=== PATIENT | male | born 1940 | race Caucasian/White ===

== ENCOUNTER 2024-02-06 07:42 | Emergency (ER) | payer MEDICARE, BC ==
[2024-02-06 08:22] LABS: BASOPHILS PERCENT AUTO 0.2 % (0.0-1.0); EOSINOPHILS PERCENT AUTO 1.5 % (1.0-3.0); HEMATOCRIT 47.2 % (40.0-54.0); HEMOGLOBIN 15.6 g/dL (14.0-18.0); LYMPHOCYTES PERCENT AUTO 18.5 % (20.5-50.1); MEAN CORPUSCULAR HGB CONC 33.1 g/dL (33.0-35.0); MEAN CORPUSCULAR VOLUME 96.9 fL (80-100); MONOCYTES PERCENT AUTO 10.8 % (2-8); PLATELET COUNT,PLT 174 10^3/uL (150-450); RED BLOOD CELL COUNT 4.87 10^6/uL (4.6-6.2); WHITE BLOOD CELL COUNT,WBC 8.5 10^3/uL (5.0-10.0)
[2024-02-06] MEDS: Sodium Chloride 0.9% 10 ML Syringe FLUSH PRN (08:37)
[2024-02-06] MEDS: fentaNYL 100 MCG/2 ML SDV IVPUSH ONE (08:57)
[2024-02-06 09:24] LABS: ALBUMIN 3.4 g/dL (3.4-5.0); ANION GAP 9.6 mEq/L (7-13); BILIRUBIN TOTAL 1.1 mg/dL (0.2-1.0); BUN/CREATININE RATIO 12.2 (No establ ref range); CALCIUM 9.2 mg/dL (8.5-10.1); CREATININE 1.56 mg/dL (0.70-1.30); EST CRCL DRUG DOSING (CG) 35.75 mL/min; POTASSIUM,K 4.6 mmol/L (3.5-5.1); PROTEIN TOTAL,TP 6.7 g/dL (6.4-8.2)
== END 2024-02-06 10:41 | disposition home or self-care (01) ==
LOC: DL.ED 07:42
DX: M54.6 Pain in thoracic spine (principal); R79.89 Other specified abnormal findings of blood chemistry; I10 Essential (primary) hypertension; E78.00 Pure hypercholesterolemia, unspecified; E66.9 Obesity, unspecified; Z87.891 Personal history of nicotine dependence; Z79.899 Other long term (current) drug therapy; Z79.82 Long term (current) use of aspirin; Z68.34 Body mass index [BMI] 34.0-34.9, adult
CPT/HCPCS: 36415; 74176; 80053; 85025; 96374; 99284; 99284-25; J3010; J3490

== ENCOUNTER 2024-02-19 15:36 | Emergency (ER) | payer MEDICARE, BC ==
[2024-02-19] MEDS ORDERED: Sodium Chloride 0.9% 10 ML Syringe FLUSH PRN (16:02)
[2024-02-19 16:25] LABS: BASOPHILS PERCENT AUTO 0.1 % (0.0-1.0); EOSINOPHILS PERCENT AUTO 0.2 % (1.0-3.0); HEMATOCRIT 43.6 % (40.0-54.0); HEMOGLOBIN 14.5 g/dL (14.0-18.0); MEAN CORPUSCULAR HEMOGLOBIN 31.4 pg (27.0-34.0); MEAN CORPUSCULAR HGB CONC 33.3 g/dL (33.0-35.0); MEAN CORPUSCULAR VOLUME 94.4 fL (80-100); MONOCYTES PERCENT AUTO 10.9 % (2-8); NEUTROPHILS PERCENT AUTO 80.8 % (42.2-75.2); PLATELET COUNT,PLT 158 10^3/uL (150-450); RED BLOOD CELL COUNT 4.62 10^6/uL (4.6-6.2)
[2024-02-19 16:44] LABS: A/G RATIO 0.9; ALBUMIN 3.4 g/dL (3.4-5.0); ANION GAP 13.3 mEq/L (7-13); BILIRUBIN TOTAL 1.1 mg/dL (0.2-1.0); BUN/CREATININE RATIO 11.9 (No establ ref range); C-REACTIVE PROTEIN 5.51 ng/dL (<=0.50); CALCIUM 9.2 mg/dL (8.5-10.1); CREATININE 2.53 mg/dL (0.70-1.30); EST CRCL DRUG DOSING (CG) 22.04 mL/min; MAGNESIUM 2.2 mg/dL (1.8-2.4); POTASSIUM,K 5.3 mmol/L (3.5-5.1)
[2024-02-19] MEDS: Ondansetron 4 MG/2 ML SDV IVPUSH ONE (16:45)
[2024-02-19 16:52] LABS: APPEARANCE,URINE SLIGHTLY CLOUDY (CLEAR); BILIRUBIN,URINE SMALL (NEGATIVE); COLOR,URINE YELLOW (YELLOW); GLUCOSE,URINE NEGATIVE (NEGATIVE); KETONES,URINE 40 (NEGATIVE); LEUKOCYTE ESTERASE,URINE NEGATIVE (NEGATIVE); NITRITE,URINE NEGATIVE (NEGATIVE); OCCULT BLOOD,URINE LARGE (NEGATIVE); PH,URINE 5.5 (5.0-9.0); PROTEIN,URINE NEGATIVE (NEGATIVE)
[2024-02-19] MEDS: Sodium Chloride 0.9% 1,000 ML IV ONE ×2 (17:06→18:08)
[2024-02-19 17:13] LABS: BACTERIA,URINE RARE /HPF (0-FEW/HPF); EPITHELIAL CELLS,URINE FEW /HPF (NOT SEEN); MUCUS,URINE FEW /LPF (NOT SEEN); RBC,URINE 30-40 /HPF (0-5); WBC,URINE 0-5 /HPF (0-5/HPF)
== END 2024-02-19 19:12 ==
LOC: DL.ED 15:36
DX: N13.30 Unspecified hydronephrosis (principal); N17.9 Acute kidney failure, unspecified; E78.00 Pure hypercholesterolemia, unspecified; E66.9 Obesity, unspecified; Z79.82 Long term (current) use of aspirin; Z79.899 Other long term (current) drug therapy; Z68.33 Body mass index [BMI] 33.0-33.9, adult
CPT/HCPCS: 36415; 74176; 80053; 81001; 83735; 85025; 86140; 87804; 96361; 96374; 99284; J2405; J7030; U0002

== ENCOUNTER 2024-04-15 08:35 | Inpatient (IN) | payer MEDICARE, BC ==
[2024-04-15] MEDS ORDERED: Sodium Chloride 0.9% 10 ML Syringe FLUSH PRN (09:10)
[2024-04-15 09:34] LABS: BASOPHILS PERCENT AUTO 0.2 % (0.0-1.0); EOSINOPHILS PERCENT AUTO 4.5 % (1.0-3.0); HEMATOCRIT 38.3 % (40.0-54.0); HEMOGLOBIN 12.6 g/dL (14.0-18.0); LYMPHOCYTES PERCENT AUTO 10.8 % (20.5-50.1); MEAN CORPUSCULAR HEMOGLOBIN 30.1 pg (27.0-34.0); MEAN CORPUSCULAR HGB CONC 32.9 g/dL (33.0-35.0); MEAN CORPUSCULAR VOLUME 91.4 fL (80-100); MONOCYTES PERCENT AUTO 11.5 % (2-8); PLATELET COUNT,PLT 263 10^3/uL (150-450); RED BLOOD CELL COUNT 4.19 10^6/uL (4.6-6.2); WHITE BLOOD CELL COUNT,WBC 11.3 10^3/uL (5.0-10.0)
[2024-04-15 09:42] LABS: BILIRUBIN,URINE NEGATIVE (NEGATIVE); COLOR,URINE YELLOW (YELLOW); GLUCOSE,URINE NEGATIVE (NEGATIVE); KETONES,URINE NEGATIVE (NEGATIVE); LEUKOCYTE ESTERASE,URINE TRACE (NEGATIVE); NITRITE,URINE NEGATIVE (NEGATIVE); OCCULT BLOOD,URINE TRACE-INTACT (NEGATIVE); PROTEIN,URINE TRACE (NEGATIVE); UROBILINOGEN,URINE 0.2 mg/dL (0.2-1.0)
[2024-04-15 09:43] LABS: APPEARANCE,URINE SLIGHTLY CLOUDY (CLEAR)
[2024-04-15 09:46] LABS: ALBUMIN 2.8 g/dL (3.4-5.0); ANION GAP 11.3 mEq/L (7-13); BILIRUBIN TOTAL 0.7 mg/dL (0.2-1.0); BUN/CREATININE RATIO 14.5 (No establ ref range); C-REACTIVE PROTEIN 7.62 ng/dL (<=0.50); CALCIUM 12.9 mg/dL (8.5-10.1); EST CRCL DRUG DOSING (CG) 27.88 mL/min; MAGNESIUM 2.1 mg/dL (1.8-2.4); POTASSIUM,K 5.3 mmol/L (3.5-5.1); PROTEIN TOTAL,TP 7.6 g/dL (6.4-8.2)
[2024-04-15 09:50] LABS: LACTIC ACID 1.8 mmol/L (0.4-2.0)
[2024-04-15 09:56] LABS: BACTERIA,URINE FEW /HPF (0-FEW/HPF); EPITHELIAL CELLS,URINE OCCASIONAL /HPF (NOT SEEN); MUCUS,URINE RARE /LPF (NOT SEEN); RBC,URINE 0-5 /HPF (0-5)
[2024-04-15 10:01] LABS: A/G RATIO 0.58
[2024-04-15] MEDS: Sodium Chloride 0.9% 1,000 ML IV ONE (10:10)
[2024-04-15] MEDS: Calcitonin (Salmon) Nasal Spray 3.7 ML Bottle NAS ONE ×2 (12:36→12:48)
[2024-04-15] MEDS: Dexamethasone 4 MG/ML SDV IVPUSH ONE (12:48)
[2024-04-15] MEDS: Sodium Chloride 0.9% 1,000 ML IV SCH (12:56)
[2024-04-15] MEDS ORDERED: Oxybutynin 5 MG Tab PO PRN (13:11)
[2024-04-15] MEDS ORDERED: Ondansetron 4 MG/2 ML SDV IVPUSH PRN (13:19)
[2024-04-15] MEDS ORDERED: Sennosides/Docusate Sodium 50-8.6 MG Tab PO PRN (13:19)
[2024-04-15] MEDS ORDERED: Polyethylene Glycol 3350 Powder 17 GM Packet PO PRN (13:19)
[2024-04-15] MEDS ORDERED: Acetaminophen 325 MG Tab PO PRN (13:19)
[2024-04-15] MEDS ORDERED: Naloxone 2 MG/2 ML Syringe IVPUSH PRN (13:19)
[2024-04-15] MEDS ORDERED: Albuterol/Ipratropium 3.0-0.5 MG/3 ML Neb Soln NEB PRN (13:19)
[2024-04-15] MEDS ORDERED: Magnesium Hydroxide 400 MG/5 ML Susp 30 ML Cup PO PRN (13:19)
[2024-04-15] MEDS: Furosemide 20 MG/2 ML VIAL IVPUSH ONE (14:04)
[2024-04-15 20:29] LABS: ALBUMIN 2.3 g/dL (3.4-5.0); ANION GAP 9.2 mEq/L (7-13); BILIRUBIN TOTAL 0.6 mg/dL (0.2-1.0); BUN/CREATININE RATIO 14.2 (No establ ref range); CREATININE 2.11 mg/dL (0.70-1.30); EST CRCL DRUG DOSING (CG) 26.43 mL/min; MAGNESIUM 2.1 mg/dL (1.8-2.4); POTASSIUM,K 5.2 mmol/L (3.5-5.1); PROTEIN TOTAL,TP 6.6 g/dL (6.4-8.2)
[2024-04-15 20:32] LABS: A/G RATIO 0.53
[2024-04-15] MEDS: Melatonin 3 MG Tab PO PRN (20:40)
[2024-04-15] MEDS: Mirtazapine 15 MG Tab PO SCH (20:40)
[2024-04-15] MEDS: Acetaminophen/oxyCODONE 325-5 MG Tab PO PRN (20:40)
[2024-04-15] MEDS: Calcitonin (Salmon) Nasal Spray 3.7 ML Bottle NAS SCH (20:41)
[2024-04-16] MEDS ORDERED: Calcitonin (Salmon) Nasal Spray 3.7 ML Bottle NAS SCH (01:00)
[2024-04-16] MEDS: HYDROmorphone 0.5 MG/0.5 ML Syringe IVPUSH PRN (02:50)
[2024-04-16 06:07] LABS: BASOPHILS PERCENT AUTO 0.1 % (0.0-1.0); EOSINOPHILS PERCENT AUTO 0.2 % (1.0-3.0); HEMOGLOBIN 10.7 g/dL (14.0-18.0); LYMPHOCYTES PERCENT AUTO 11.4 % (20.5-50.1); MEAN CORPUSCULAR HGB CONC 32.4 g/dL (33.0-35.0); MEAN CORPUSCULAR VOLUME 92.4 fL (80-100); MONOCYTES PERCENT AUTO 10.2 % (2-8); NEUTROPHILS PERCENT AUTO 78.1 % (42.2-75.2); PLATELET COUNT,PLT 236 10^3/uL (150-450); RED BLOOD CELL COUNT 3.57 10^6/uL (4.6-6.2); WHITE BLOOD CELL COUNT,WBC 10.6 10^3/uL (5.0-10.0)
[2024-04-16 06:31] LABS: ALBUMIN 2.3 g/dL (3.4-5.0); ANION GAP 9.8 mEq/L (7-13); BILIRUBIN TOTAL 0.6 mg/dL (0.2-1.0); BUN/CREATININE RATIO 14.6 (No establ ref range); CALCIUM 11.6 mg/dL (8.5-10.1); CREATININE 1.99 mg/dL (0.70-1.30); EST CRCL DRUG DOSING (CG) 28.02 mL/min; MAGNESIUM 2.1 mg/dL (1.8-2.4); POTASSIUM,K 4.8 mmol/L (3.5-5.1); PROTEIN TOTAL,TP 6.4 g/dL (6.4-8.2)
[2024-04-16 06:46] LABS: A/G RATIO 0.56
[2024-04-16] MEDS: Dexamethasone 4 MG Tab PO SCH (09:36)
[2024-04-16] MEDS: Diclofenac Sodium 1% Gel 100 GM Tube TOP PRN (17:43)
[2024-04-16] MEDS: Ziprasidone Mesylate 20 MG Vial IM ONE (20:32)
[2024-04-16] MEDS: Lidocaine 5% 700 MG Patch TOP SCH (20:32)
[2024-04-16] MEDS ORDERED: Flumazenil 0.1 MG/ML 5 ML MDV IVPUSH PRN (21:23)
[2024-04-16] MEDS: LORazepam 2 MG/ML SDV IVPUSH STA (21:36)
[2024-04-17] MEDS: LORazepam 2 MG/ML SDV IVPUSH ONE (02:46)
[2024-04-17 11:26] LABS: BASOPHILS PERCENT AUTO 0.1 % (0.0-1.0); EOSINOPHILS PERCENT AUTO 1.8 % (1.0-3.0); HEMATOCRIT 37.5 % (40.0-54.0); HEMOGLOBIN 12.2 g/dL (14.0-18.0); LYMPHOCYTES PERCENT AUTO 8.7 % (20.5-50.1); MEAN CORPUSCULAR HGB CONC 32.5 g/dL (33.0-35.0); MEAN CORPUSCULAR VOLUME 92.1 fL (80-100); MONOCYTES PERCENT AUTO 11.2 % (2-8); NEUTROPHILS PERCENT AUTO 78.2 % (42.2-75.2); PLATELET COUNT,PLT 225 10^3/uL (150-450); RED BLOOD CELL COUNT 4.07 10^6/uL (4.6-6.2); WHITE BLOOD CELL COUNT,WBC 13.5 10^3/uL (5.0-10.0)
[2024-04-17 11:54] LABS: ALBUMIN 2.7 g/dL (3.4-5.0); ANION GAP 10.8 mEq/L (7-13); BILIRUBIN TOTAL 0.8 mg/dL (0.2-1.0); BUN/CREATININE RATIO 14.1 (No establ ref range); CALCIUM 12.9 mg/dL (8.5-10.1); CREATININE 2.05 mg/dL (0.70-1.30); EST CRCL DRUG DOSING (CG) 27.2 mL/min; MAGNESIUM 2.2 mg/dL (1.8-2.4); POTASSIUM,K 4.8 mmol/L (3.5-5.1); PROTEIN TOTAL,TP 6.8 g/dL (6.4-8.2)
[2024-04-17 12:03] LABS: A/G RATIO 0.66
[2024-04-17] MEDS: Denosumab 60 MG/1 ML Syringe SUBCUT ONE (12:48)
[2024-04-17 15:46] LABS: VITAMIN D 1,25 29.7 pg/mL (19.9-79.3)
[2024-04-17] MEDS ORDERED: Sodium Chloride 0.9% 500 ML IV SCH (16:30)
[2024-04-17] MEDS: Furosemide 20 MG/2 ML VIAL IVPUSH ONE (19:19)
[2024-04-17] MEDS: Furosemide 20 MG/2 ML VIAL ONE (19:20)
[2024-04-17] MEDS: Sodium Chloride 0.9% 1,000 ML IV SCH (19:24)
[2024-04-17] MEDS: Rosuvastatin 10 MG Tab PO SCH (20:08)
[2024-04-17] MEDS: Carvedilol 3.125 MG Tab PO SCH (20:08)
[2024-04-17 23:42] LABS: INTACT PTH 7 pg/mL (15-65)
[2024-04-18] MEDS: LORazepam 2 MG/ML SDV IVPUSH PRN (00:44)
[2024-04-18] MEDS: Aspirin 81 MG Tab.EC PO SCH (08:20)
[2024-04-18 11:27] LABS: ANION GAP 10.8 mEq/L (7-13); CALCIUM 11.7 mg/dL (8.5-10.1); CREATININE 1.92 mg/dL (0.70-1.30); EST CRCL DRUG DOSING (CG) 29.04 mL/min; POTASSIUM,K 4.8 mmol/L (3.5-5.1)
[2024-04-18] MEDS: Scopalamine 1mg/3day Transdermal Patch TOP ONE (12:38)
[2024-04-19] MEDS: Atropine 1% Ophth Soln 5 ML Bottle SL PRN (08:34)
[2024-04-19] MEDS: HYDROmorphone 1 MG/ML Syringe IVPUSH PRN (13:10)
[2024-04-19] MEDS: LORazepam 2 MG/ML SDV IVPUSH PRN (13:10)
[2024-04-19 19:41] LABS: IONIZED CA@PH7.4 1.75 mmol/L (1.09-1.30); IONIZED CALCIUM 1.66 mmol/L (1.09-1.30)
[2024-04-21] MEDS ORDERED: CHECK SCOPOLAMINE TRDERM SCH (11:15)
== END 2024-04-19 18:50 | disposition expired | DRG 640 ==
LOC: DL.ED 08:35 → DL.MS 10:44
PROVIDERS: ADMIT Internal Medicine; ATTEND Internal Medicine
DX: E83.52 Hypercalcemia (principal); G93.41 Metabolic encephalopathy; N17.9 Acute kidney failure, unspecified; C64.1 Malignant neoplasm of right kidney, except renal pelvis; C66.1 Malignant neoplasm of right ureter; E87.1 Hypo-osmolality and hyponatremia; Z66 Do not resuscitate; Z79.2 Long term (current) use of antibiotics; Z51.5 Encounter for palliative care; E87.5 Hyperkalemia; E87.8 Other disorders of electrolyte and fluid balance, not elsewhere classified; H54.7 Unspecified visual loss; M19.90 Unspecified osteoarthritis, unspecified site; E78.00 Pure hypercholesterolemia, unspecified; E66.9 Obesity, unspecified; E88.09 Other disorders of plasma-protein metabolism, not elsewhere classified; R63.4 Abnormal weight loss; F32.A Depression, unspecified; R73.9 Hyperglycemia, unspecified; E86.0 Dehydration; G89.29 Other chronic pain; D72.829 Elevated white blood cell count, unspecified; Z68.30 Body mass index [BMI] 30.0-30.9, adult; Z86.16 Personal history of COVID-19; Z79.82 Long term (current) use of aspirin; Z79.899 Other long term (current) drug therapy; Z87.891 Personal history of nicotine dependence; Z96.659 Presence of unspecified artificial knee joint; Z98.890 Other specified postprocedural states; Z86.0100 Personal history of colon polyps, unspecified
CPT/HCPCS: 36415; 80053; 81001; 82306; 82652; 83605; 83735; 83970; 85025; 86140; 87086; 87428; 96360; 99284; J7030; 51702; 76770; 80048; 82330; 99223; 99233; 99239; 99285; A9270-GY; J0897; J1100; J1171; J1940; J2060; J3486; J8540